=== PATIENT | male | born 1975 ===

== ENCOUNTER 2023-10-09 12:47 | Emergency (ER) | payer BC, OTHER ==
[2023-10-09] MEDS ORDERED: Sodium Chloride 0.9% 10 ML Syringe FLUSH PRN (12:54)
[2023-10-09] MEDS ORDERED: Ketamine 500 mg/10 ML MDV IV ONE (12:57)
[2023-10-09] MEDS ORDERED: Mupirocin Oint 22 GM Tube TOP ONE (13:01)
[2023-10-09] MEDS ORDERED: Diphtheria,Pertussis(Acell),Tetanus Vaccine 0.5 ML Syringe IM ONE (14:11)
[2023-10-09] MEDS ORDERED: Ondansetron 4 MG Tab.DIS PO ONE (14:43)
== END 2023-10-09 14:53 | disposition home or self-care (01) ==
LOC: DL.ED 12:47
DX: S30.810A Abrasion of lower back and pelvis, initial encounter (principal); Z23 Encounter for immunization; V87.7XXA Person injured in collision between other specified motor vehicles (traffic), initial encounter; Y92.410 Unspecified street and highway as the place of occurrence of the external cause
CPT/HCPCS: 90471; 96374; 99283; 99284-25; A9270-GY